=== PATIENT | female | born 1950 | race Caucasian/White ===

== ENCOUNTER 2019-04-13 15:17 | Outpatient (CLI) | payer MEDICARE, SELFPAY ==
--- NOTE | 2019-04-22 04:11 | SLEEP_ITS ---
DATE OF STUDY: 04/13/2019 ORDERING PHYSICIAN: Haritha Harley MD. REASON FOR THIS STUDY: Poor quality sleep, waking at night. HISTORY: This patient is a 68-year-old female, 62 inches tall, weighing 200 pounds with a body mass index of 36.6. She has complaints of occasionally snoring, occasionally loud enough that others complain about it. She occasionally has trouble sleeping with a cold, rarely wakes up gasping for breath at night, rarely sweats excessively at night, rarely notices her heart pounding or beating irregularly at night and rarely falling asleep during the day. She does not fall asleep involuntarily or while driving. She does not have loss of muscle tone with strong emotion. 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 She does not feel paralyzed on awaking or falling asleep. She occasionally has vivid dreamlike scenes upon awakening or falling asleep. She is never afraid to go to sleep. She rarely has nightmares and rarely remembers her dreams. She does not have racing thoughts. She rarely feels sad, depressed, or anxious. She occasionally has muscular tension. She rarely notices parts of her body jerking and she rarely kicks at night. She rarely has crawly achy feelings in her legs and rarely has leg pain at night. She never has morning jaw pain. She does not think she grinds her teeth at night. She rarely is bothered by pain during the day or is awakened with pain at night. She occasionally wakes up feeling stiff in the morning with sore achy muscles and occasionally awakes with pain in the neck and spine. She has headaches, fatigue, memory problems, concentration difficulties, and shyness. She goes to bed at 10 p.m., taking 15-30 minutes to fall asleep, awaking 3 times at night and staying awake for 15 to 30 minutes. She will roll over trying to go back to sleep and occasionally will go to the bathroom. She awakens at 6 in the morning. She estimates 5 hours of sleep at nights. She sometimes takes naps in the afternoon. She feels better in the morning than other times of the day. MEDICAL COMORBIDITIES: Hypertension, heart disease, acid reflux, seasonal allergies, and arthritis. MEDICATIONS: 1. Candesartan 32 mg a day. 2. Metoprolol 50 mg twice a day. 3. Hydrochlorothiazide 25 mg a day. 4. Atorvastatin 40 mg a day. 5. Omeprazole once daily. 6. Zyrtec daily for allergies. HABITS: Tobacco, years ago. Caffeine, 2 to 3 cups a day. Alcohol once per week. No recreational drugs. DESCRIPTION OF THE STUDY: On the [place] Sleepiness Scale, her score is 10. This was conducted as a full night basic nocturnal polysomnogram using the [employer] multiple channel system including EOG, EEG, submental EMG, EKG, nasal and oral airflow using thermistors and nasal pressure sensors, chest and abdominal belts, body position data and pulse oximetry. The study was scored using [facility] guidelines. Duration of the study was 425.8 minutes. Sleep time was 226.5 minutes. Sleep efficiency was very low, 53.2%. Sleep latency was 28.2 minutes. REM latency was very long, 293.5 minutes. She had 43 awakenings and spent 43% of the study, 171 minutes awake after sleep onset. Sleep architecture showed 14.2% stage 1 sleep, 37.1% stage 2 sleep, no stage 3 sleep and 5.7% stage REM. She spent only 6.8% of the study supine. The remainder was non-supine. Sleep was fragmented with long frequent episodes of wakefulness and while she was sleeping frequent shifts between stage I, stage II, and wake. She had 1 consolidated episode of REM, but it was only 22.5 minutes in the last third of the night. This was followed by an episode of wakefulness. The apnea-hypopnea index was 31.5, mostly all obstructive events. The obstructive index was 31.3 and the central index 0.3.
== END 2019-04-13 15:18 | disposition home or self-care (01) ==
PROVIDERS: PCP Family Medicine; Visit Provider Family Medicine
DX: G47.33 Obstructive sleep apnea (adult) (pediatric) (principal); G47.61 Periodic limb movement disorder; I10 Essential (primary) hypertension; E78.5 Hyperlipidemia, unspecified; K21.9 Gastro-esophageal reflux disease without esophagitis; K44.9 Diaphragmatic hernia without obstruction or gangrene; J30.2 Other seasonal allergic rhinitis
CPT/HCPCS: 95810

== ENCOUNTER 2020-06-27 15:51 | Outpatient (CLI) | payer MEDICARE, SELFPAY ==
--- NOTE | ~2020-06-27 | XR_ITS ---
XR hip LT min 2V DATE: 06/28/2020 08:32 INDICATION: Left hip pain TECHNIQUE: AP, lateral, crosstable lateral views COMPARISON: None FINDINGS: Bone detail is somewhat limited due to body habitus. No fracture, dislocation, avascular necrosis or bone destruction of the left hip is evident. IMPRESSION: No significant abnormality detected Reviewed, dictated and finalized at location A.
== END 2020-06-27 15:52 | disposition home or self-care (01) ==
PROVIDERS: PCP Family Medicine; Visit Provider Family Medicine
DX: M25.552 Pain in left hip (principal)
CPT/HCPCS: 73502

== ENCOUNTER 2020-08-02 08:59 | Outpatient (CLI) | payer MEDICARE, SELFPAY ==
--- NOTE | ~2020-08-02 | XR_ITS ---
EXAMINATION: XR foot RT min 3V EXAM DATE: 08/02/2020 09:10 INDICATION: Popping sound, symptoms 1 day. Lateral plantar foot pain. TECHNIQUE: Right foot dorsoplantar, lateral and oblique projections obtained and reviewed. There is no prior study for comparison. FINDINGS: Right metatarsal bones unremarkable. Small posterior and inferior calcaneal spurs. There are no acute fractures or dislocations identified. There is no subcutaneous gas. The soft tissue is unremarkable. There are no radiopaque foreign bodies. IMPRESSION: No acute right foot findings. Small calcaneal spurs. Reviewed, dictated and finalized at location B.
== END 2020-08-02 09:00 | disposition home or self-care (01) ==
LOC: ANHBWCIMG 09:01
PROVIDERS: PCP Family Medicine; Visit Provider Family Medicine
DX: M79.672 Pain in left foot (principal)
CPT/HCPCS: 73630

== ENCOUNTER 2021-01-09 11:23 | Outpatient (CLI) | payer MEDICARE, SELFPAY ==
--- NOTE | ~2021-01-09 | XR_ITS ---
XR lumbar spine 6V w bending 01/09/2021 11:47 Indication: Low back pain. Skin anesthesia. Procedure: 6 views of the lumbar spine Comparison: No prior studies for comparison. Findings: There is disc narrowing at all lumbar levels. There is moderate multilevel facet degenerati ve change with grade 1 degenerative spondylolisthesis at L3-4. No acute fracture, subluxation or disl ocation. No significant alignment change with flexion/extension. Pedicles intact. Large marginal oste ophytes at L4-5. Sacral foramen are symmetric. Impression: 1: Severe lumbar spondylosis with grade 1 degenerative spondylolisthesis at L3-4. Reviewed, dictated and finalized at location A. STANT PRODUCTION MANAGER Impression: 1: Severe lumbar spondylosis with grade 1 degenerative spondylolisthesis at L3- 4.
== END 2021-01-09 11:24 | disposition home or self-care (01) ==
LOC: ANHBWCIMG 11:25
PROVIDERS: PCP Family Medicine; Visit Provider Family Medicine
DX: R20.0 Anesthesia of skin (principal); M47.816 Spondylosis without myelopathy or radiculopathy, lumbar region
CPT/HCPCS: 72114

== ENCOUNTER 2021-02-07 06:41 | Outpatient (CLI) | payer MEDICARE, SELFPAY ==
--- NOTE | ~2021-02-07 | MR_ITS ---
EXAMINATION: MR lumbar spine wo con DATE: 02/07/2021 07:25 INDICATION: Anesthesia of skin. Low back pain. Bilateral leg numbness. TECHNIQUE: Magnetic resonance imaging (MRI) of the lumbar spine was performed without intravenous con trast. Sequences included sagittal T2-weighted FSE, sagittal T2-weighted FS FSE, sagittal T1-weighted FSE, and axial T2-weighted FSE. COMPARISON: Lumbar spine radiographs 01/09/2021 FINDINGS: L5 is a transitional segment. There is 5 degrees dextrocurvature of lumbar spine. There is 4 mm retrolisthesis of L3 on L4. Vertebral body heights are normal. There is mildly decreased disc he ight at T12-L1 and L1-L2, severely decreased disc height at L2-L3, moderately decreased disc height a t L3-L4, and severely decreased disc height at L4-L5 with endplate remodeling. There is ligamentum f lavum hypertrophy at the disc levels from L1-L2 through L4-L5. The distal spinal cord signal intensit y is normal. The conus medullaris is at L1. There is a 2.9 cm cyst in right kidney. The following dis c levels are specifically discussed: L1-L2: The disc is bulging as an annular fissure. There is severe bilateral facet joint osteoarthriti s. There is mild right and moderate left neural foraminal stenosis. There is mild central canal steno sis. L2-L3: The disc is bulging and has an enlarged fissure. There is severe bilateral facet joint osteoar thritis. There is moderate bilateral neural foraminal stenosis. There is moderate central canal steno sis. L3-L4: The disc is bulging and has an annular fissure. There is severe bilateral facet joint osteoart hritis. There is mild bilateral neural foraminal stenosis. There is moderate central canal stenosis. L4-L5: The disc is bulging and has an annular fissure. There is severe bilateral facet joint osteoart hritis. There is moderate bilateral neural foraminal stenosis. There is moderate central canal stenos is. L5-S1: The disc does not extend beyond the endplate margin. There is mild bilateral facet joint osteo arthritis. There is no neural foraminal stenosis. There is no central canal stenosis. IMPRESSION: 1. Severe lumbar spondylosis. Reviewed, dictated and finalized at location A. OFF SAW GRADER
== END 2021-02-07 06:42 | disposition home or self-care (01) ==
PROVIDERS: PCP Family Medicine; Visit Provider Family Medicine
DX: R20.0 Anesthesia of skin (principal); M47.816 Spondylosis without myelopathy or radiculopathy, lumbar region
CPT/HCPCS: 72148

== ENCOUNTER 2021-02-20 09:09 | Outpatient (CLI) | payer MEDICARE, SELFPAY ==
--- NOTE | ~2021-02-20 | MM_ITS ---
EXAMINATION: MM scrn amaya implant BI w gerard HISTORY: Screening mammogram, family history of breast cancer in her mother. TECHNIQUE: Craniocaudal and mediolateral oblique 3-D tomosynthesis images with implant displacement a nd synthetic 2-D images were generated. Craniocaudal and mediolateral oblique views of the breasts wi thout implant displacement were obtained using full field digital mammography. CAD analysis was submi tted and interpreted. COMPARISON: 11/23/2015, 11/20/2015, 06/06/2014 BREAST PARENCHYMAL COMPOSITION: There are scattered areas of fibroglandular density. FINDINGS: RIGHT BREAST: There is a 3 mm mass in the inner breast best appreciated 5 cm from the nipple on the i mplant displaced views. LEFT BREAST: There is no evidence of suspicious mass, calcification, or architectural distortion to s uggest malignancy. There has been no significant interval change. IMPRESSION: 1. Right breast mass. 2. Additional mammographic views and possible breast ultrasound are recommended. BI-RADS Category 0: Incomplete: Needs additional imaging evaluation. Reviewed, dictated and finalized at location A. AL INSTALLER IMPRESSION: 1. Right breast mass. 2. Additional mammographic views and possible breast ultrasound are recommended . BI-RADS Category 0: Incomplete: Needs additional imaging evaluation.
== END 2021-02-20 09:10 | disposition home or self-care (01) ==
LOC: ANHIMG 09:11
PROVIDERS: PCP Family Medicine; Visit Provider Family Medicine
DX: Z12.31 Encounter for screening mammogram for malignant neoplasm of breast (principal); R92.8 Other abnormal and inconclusive findings on diagnostic imaging of breast
CPT/HCPCS: 77063; 77067

== ENCOUNTER 2021-03-08 12:03 | Outpatient (CLI) | payer MEDICARE, SELFPAY ==
--- NOTE | ~2021-03-08 | US_ITS ---
US breast RT limited 03/08/2021 13:04 Indication: Follow-up right breast mass Procedure: High-resolution Limited right breast ultrasound Comparison: Mammogram dated 03/08/2021 Findings: At 12:00, 3 cm from the nipple there is a cluster of cysts corresponding to the mammographi c finding. No suspicious masses to suggest malignancy. Impression: 1: No sonographic evidence for malignancy in the right breast. Routine yearly screening mammogram and regular clinical breast examination are recommended. BI-RADS CATEGORY 2 - BENIGN FINDINGS Reviewed, dictated and finalized at location A. [place] TEACHER Impression: 1: No sonographic evidence for malignancy in the right breast. Routine yearly screening mammogram and regular clinical breast examination are recommended. BI-RADS CATEGORY 2 - BENIGN FINDINGS
--- NOTE | ~2021-03-08 | MM_ITS ---
EXAMINATION: MM diagnostic amaya RT w gerard HISTORY: Follow-up right breast mass TECHNIQUE: Additional 3-D tomosynthesis images of the right breast were performed and synthetic 2-D i mages were generated. CAD analysis was submitted and interpreted. COMPARISON: 02/20/2021 BREAST PARENCHYMAL COMPOSITION: Breast composed of scattered areas of fibroglandular density. FINDINGS: There is a persistent 3-4 mm mass in the upper inner quadrant of the right breast, middle t hird. No suspicious calcifications or architectural distortion. IMPRESSION: 1. Persistent right breast mass, upper inner quadrant. 2. Ultrasound-guided right breast biopsy recommended. BI-RADS Category 0: Incomplete: Needs additional imaging evaluation. Reviewed, dictated and finalized at location A. T SHOP STENOGRAPHER
== END 2021-03-08 12:04 | disposition home or self-care (01) ==
LOC: ANHIMG 12:04
PROVIDERS: PCP Family Medicine; Visit Provider Family Medicine
DX: R92.8 Other abnormal and inconclusive findings on diagnostic imaging of breast (principal)
CPT/HCPCS: 76642; 77061; 77065; G0279

== ENCOUNTER 2021-07-30 12:28 | Outpatient (CLI) | payer MEDICARE, SELFPAY ==
--- NOTE | ~2021-07-30 | XR_ITS ---
EXAM: XR ankle LT min 3V DATE: 07/30/2021 12:42 HISTORY: Pain in left ankle, no injury . COMPARISON: None available. FINDINGS: Normal mineralization. No fracture or dislocation. No lytic or blastic lesion. Joint space s are maintained. Achilles enthesopathy No erosion or periosteal change. Soft tissues within normal l imits. IMPRESSION: No acute osseous finding in left ankle. Achilles enthesopathy. Reviewed, dictated and finalized at location K.
== END 2021-07-30 12:29 | disposition home or self-care (01) ==
PROVIDERS: PCP Family Medicine; Visit Provider Orthopaedic Surgery
DX: M25.572 Pain in left ankle and joints of left foot (principal)
CPT/HCPCS: 73610

== ENCOUNTER 2022-07-08 15:32 | Outpatient (CLI) | payer MEDICARE, SELFPAY ==
--- NOTE | ~2022-07-08 | MM_ITS ---
EXAMINATION: MM scrn amaya implant BI w gerard HISTORY: Screening mammogram, family history of breast cancer in her mother. TECHNIQUE: Craniocaudal and mediolateral oblique 3-D tomosynthesis images with implant displacement a nd synthetic 2-D images were generated. Craniocaudal and mediolateral oblique views of the breasts wi thout implant displacement were obtained using full field digital mammography. CAD analysis was submi tted and interpreted. COMPARISON: 03/08/2021, 02/20/2021, 11/23/2015, 11/20/2015 BREAST PARENCHYMAL COMPOSITION: There are scattered areas of fibroglandular density. FINDINGS: A stable right breast mass is noted. There is no evidence of suspicious mass, calcification , or architectural distortion to suggest malignancy in either breast. There has been no suspicious in terval change. IMPRESSION: 1. No mammographic evidence of malignancy. 2. Recommend routine screening mammography in one year. BI-RADS Category 2: Benign finding(s). Reviewed, dictated and finalized at location A.
== END 2022-07-08 15:33 | disposition home or self-care (01) ==
LOC: ANHIMG 15:34
PROVIDERS: PCP Emergency Medicine; Visit Provider Emergency Medicine
DX: Z12.31 Encounter for screening mammogram for malignant neoplasm of breast (principal)
CPT/HCPCS: 77063; 77067

== ENCOUNTER 2022-07-16 08:42 | Outpatient (CLI) | payer MEDICARE, SELFPAY ==
--- NOTE | ~2022-07-16 | US_ITS ---
Abdominal Sonogram: Real-time sonographic imaging of the abdomen was performed. Clinical History: Abdominal pain Findings: The liver appears normal with no evidence of mass lesion or bile duct dilatation. Main por manuel vein demonstrates normal direction of flow. The spleen is normal in size without evidence of foca l lesion. The gallbladder is partially distended, and appears normal with no evidence of gallstone o r wall thickening. The common bile duct measures 3 mm. The visualized pancreas, aorta, and IVC are u nremarkable. The right kidney measures 11.6 cm in length and the left kidney measures 10.9 cm. Ther e is no hydronephrosis or renal calculus. Impression: Unremarkable abdominal ultrasound. Reviewed, dictated and finalized at location M. Impression: Unremarkable abdominal ultrasound.
== END 2022-07-16 08:43 | disposition home or self-care (01) ==
PROVIDERS: PCP Emergency Medicine; Visit Provider Physician Assistant
DX: R10.9 Unspecified abdominal pain (principal)
CPT/HCPCS: 76700

== ENCOUNTER 2023-09-25 07:52 | Outpatient (CLI) | payer MEDICARE, SELFPAY ==
--- NOTE | ~2023-09-25 | DEXA_ITS ---
Bone Density Report Name: YAIMA ABEBE Age: 73 Sex: Female Ethnicity: White Date of : 1950 Indication: postmenopausal; screening for osteoporosis; height loss; history of glucocorticoids; asthma or emphysema; Referring Provider: PACO, BLANCHE Mg Study: Bone densitometry was performed. Exam Date: September 25, 2023 Accession number: [id number] Bone Density: Region BMD T-score Z-score Classification AP Spine(L1-L4) 1.314 2.4 4.8 Normal Femoral Neck (Left) 0.637 -1.9 0.1 Osteopenia Total Hip (Left) 1.006 0.5 2.3 Normal Femoral Neck (Right) 0.773 -0.7 1.4 Normal Total Hip (Right) 0.970 0.2 2.0 Normal Total Hip Mean 0.988 0.4 2.2 Normal World Health Organization criteria for BMD impression classify patients as: Normal (T-score at or above -1.0), Osteopenia (T-score between -1.0 and -2.5), or Osteoporosis (T-score at or below -2.5). 10-year Fracture Risk(1): Major Osteoporotic Fracture 18% Hip Fracture 4.5% Reported Risk Factors: [place] (), Neck BMD=0.637, BMI=32.4, glucocorticoids (1) FRAX(R) Version 3.08. Fracture probability calculated for an untreated patient. Fracture probability may be lower if the patient has received treatment. Clinical Information Provided by Patient: Has taken Glucocorticoids Has used the following medications: Vitamin D Has the following medical conditions: Asthma or Emphysema Patient maximum height was 63 Menopause Age: 49 No regular weight bearing exercise Drinks caffeinated beverages Onset of menses at age 12 Number of children 2 Impression: The patient has low bone mass, based on the Left Femoral Neck T-score. The patient has an estimated ten-year risk of hip fracture of 4.5% and an estimated ten-year risk of major fracture of 18%, based on the WHO FRAX algorithm. The patient has risk factors, including: history of glucocorticoid therapy. Discussion: BONE DENSITY IS LOW AT ONE OR MORE SKELETAL SITES. THE PATIENT'S BMD AND CLINICAL RISK FACTORS CONTRIBUTE TO THIS PATIENT'S INCREASED RISK OF FRACTURE. This patient's lowest T-score is low at one or more skeletal sites. It meets the World Health Organization's (WHO) criteria for ?low bone mass? (T-score between -1.0 and -2.5). The patient's 10-year risk of hip fracture as calculated by FRAX exceeds the threshold where pharmacological therapy is recommended by the National Osteoporosis Foundation (NOF). However, all treatment decisions require clinical judgment and consideration of individual patient factors, including patient preferences, comorbidities, previous drug use, risk factors not captured in the FRAX model (e.g., frailty, falls, vitamin D deficiency, increased bone turnover, interval significant decline in bone density) and possible under or overestimation of fracture r
--- NOTE | ~2023-09-25 | MM_ITS ---
EXAMINATION: MM scrn amaya implant BI w gerard HISTORY: Screening mammogram TECHNIQUE: Craniocaudal and mediolateral oblique 3-D tomosynthesis images with implant displacement a nd synthetic 2-D images were generated. Craniocaudal and mediolateral oblique views of the breasts wi thout implant displacement were obtained using full field digital mammography. CAD analysis was submi tted and interpreted. COMPARISON: Comparison to multiple prior studies sequentially, with oldest reviewed study dated 06/06. BREAST PARENCHYMAL COMPOSITION: Not dense: There are scattered areas of fibroglandular density. FINDINGS: There are bilateral subglandular silicone implants. Focal asymmetry laterally in the right breast on CC view is unchanged from prior examinations. There is no evidence of suspicious mass, calc ification, or architectural distortion to suggest malignancy in either breast. There has been no susp icious interval change. IMPRESSION: 1. No mammographic evidence of malignancy. 2. Recommend routine screening mammography in one year. BI-RADS Category 2: Benign finding(s). Reviewed, dictated and finalized at location B.
== END 2023-09-25 07:53 | disposition home or self-care (01) ==
LOC: ANHIMG 07:54
PROVIDERS: PCP Emergency Medicine; Visit Provider Physician Assistant
DX: Z12.31 Encounter for screening mammogram for malignant neoplasm of breast (principal); Z78.0 Asymptomatic menopausal state; M85.852 Other specified disorders of bone density and structure, left thigh
CPT/HCPCS: 77063; 77067; 77080